=== PATIENT | female | born 1960 | race Two or more races ===

== ENCOUNTER 2018-04-18 17:16 | Emergency (ER) | payer MEDICAID ==
[2018-04-18 18:16] LABS: GLUCOSE, URINE (UA) NEGATIVE (NEGATIVE); KETONES,URINE (UA) TRACE mg/dL (NEGATIVE); LEUKOCYTE ESTERASE, URINE TRACE (NEGATIVE); NITRITE,URINE NEGATIVE (NEGATIVE); OCCULT BLOOD,URINE LARGE (NEGATIVE); PROTEIN,URINE TRACE mg/dL (NEGATIVE); UROBILINOGEN,URINE 1 (NORMAL) E.U./dL (NORMAL)
[2018-04-18 18:30] LABS: BILIRUBIN,URINE NEGATIVE (NEGATIVE); CLARITY,URINE HAZY (CLEAR); ICTOTEST,URINE NEGATIVE
--- NOTE | 2018-04-18 18:31 | ED Physician Documentation ---
PD HPI ABD PAIN - Stated complaint Stated Complaint: FEMALE - Chief complaint Chief Complaint: Abd Pain - History obtained from History obtained from: Patient - History of Present Illness Timing - onset: How many days ago (several days onset, but worse today) Timing - duration: Days (several) Timing - details: Gradual onset, Still present (much worse today) Quality: Cramping, Aching, Pain Location: Suprapubic Radiation: Lower back Associated symptoms: Nausea. No: Fever, Vomiting, Diarrhea, Constipation Similar symptoms before: Has not had sx before Recently seen: Not recently seen Review of Systems Constitutional: reports: Chills, Myalgias. denies: Fever Ears: denies: Ear pain Nose: denies: Rhinorrhea / runny nose, Congestion Throat: denies: Sore throat Cardiac: denies: Chest pain / pressure, Palpitations Respiratory: denies: Dyspnea, Cough GI: reports: Abdominal Pain, Nausea. 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 - Present Medications Home Medications: Ambulatory Orders Medication Instructions Recorded Confirmed Cephalexin [Keflex] 500 mg PO TID #21 capsule 04/18/18 Metronidazole [Flagyl] 500 mg PO BID #14 tablet 04/18/18 Naproxen 375 mg PO BID #20 tablet 04/18/18 Ondansetron HCl [Zofran] 4 mg PO Q6H PRN #20 tablet 04/18/18 Tramadol HCl 50 mg PO Q6H PRN #25 tablet 04/18/18 hydroCHLOROthiazide 25 mg 04/18/18 [Hydrochlorothiazide] - Allergies Allergies/Adverse Reactions: Allergies Allergy/AdvReac Type Severity Reaction Status Date / Time hydrocodone Allergy Mild Nausea Verified 04/18/18 17:27 morphine AdvReac Severe Anaphylaxis Verified 04/18/18 17:26 PD ED PE NORMAL - Vitals Vital signs reviewed: Yes - General General: Alert and oriented X 3, Well developed/nourished - HEENT HEENT: Pharynx benign - Neck Neck: Supple, no meningeal sign, No adenopathy - Cardiac Cardiac: RRR, No murmur - Respiratory Respiratory: Clear bilaterally - Abdomen Abdomen: Soft, No organomegaly, Other (tender lower abd midline and suprapubic area. Local guarding but no percussion nor rebound. ). No: Normal bowel sounds (somewhat hyperactive) - Female Female : Deferred - Rectal Rectal: Deferred - Back Back: No CVA TTP - Derm Derm: Normal color, Warm and dry - Extremities Extremities: No deformity, No tenderness to palpate, Normal ROM s pain, No edema , No calf tenderness / cord - Neuro Neuro: Alert and oriented X 3, No motor deficit, Normal speech Results - Vitals Vitals: Oxygen O2 Source Room air - Labs Labs: Laboratory Tests 04/18/18 17:38 Urine Color YELLOW Urine Clarity HAZY Urine pH 6.0 Ur Specific [place] >=1.030 H Urine Protein TRACE Urine Glucose (UA) NEGATIVE Urine Ketones TRACE Urine Occult Blood LARGE H Urine Nitrite NEGATIVE Urine Bilirubin NEGATIVE Urine Urobilinogen 1 (NORMAL) Ur Leukocyte Esterase TRACE H Urine RBC 6-10 H Urine WBC 6-10 H Ur Squamous Epith Cells MOD Squamous H Urine Bacteria Moderate H Urine Mucus Moderate Strands Ur Microscopic Review INDICATED Urine Culture Comments NOT INDICATED - Rads (name of study) abd CT Radiology: Prelim report reviewed (sigmoid diverticulitis without perforation nor abscess. ) PD MEDICAL DECISION MAKING - ED course Complexity details: reviewed results (sigmoid diverticulitis, uncomplicated. ), re-evaluated patient (feeling better with meds. ), considered differential, d/w patient - Sepsis Event Vital Signs: Oxygen O2 Source Room air Departure - Departure Disposition: 01 Home, Self Care Clinical Impression: Sigmoid diverticulitis Abdominal pain Qualifiers: Abdominal location: lower abdomen, unspecified Qualified Code(s): R10.30 - Lower abdominal pain, unspecified Condition: Stable Record reviewed to determine appropriate education?: Yes Instructions: ED Diverticulitis Prescriptions: Cephalexin [Keflex] 500 mg PO TID #21 capsule Metronidazole [Flagyl] 500 mg PO BID #14 tablet Naproxen 375 mg PO BID #20 tablet Ondansetron HCl [Zofran] 4 mg PO Q6H PRN #20 tablet PRN Reason: Nausea / Vomiting Tramadol HCl 50 mg PO Q6H PRN #25 tablet PRN Reason: Pain Comments: Your CT scan shows sigmoid diverticulitis. The sigmoid is in the low intestine so it feels like it is around the bladder area and that will give you the symptoms. We will treat this with antibiotics cephalexin and metronidazole as directed for a week. Use an anti-inflammatory naproxen twice daily for a week as well. Drink lots of fluids. Use ondansetron if needed for nausea. Tylenol if needed for pain and add tramadol to that if needed. Follow-up with your primary care if not improving well over the next couple of days. Return to the ER sooner if worse. Discharge Date/Time: 04/18/18 21:20
[2018-04-18 18:42] LABS: BACTERIA,URINE Moderate /HPF (None Seen); MUCUS,URINE Moderate Strands; SQUAMOUS EPITHELIAL CELL,UR MOD Squamous (<= Few)
[2018-04-18] MEDS ORDERED: traMADol 50 MG TABLET PO STA (18:46)
[2018-04-18] MEDS ORDERED: KETOROLAC 30 MG/ML VIAL IM STA (18:46)
[2018-04-18] MEDS ORDERED: cephALEXin 250 MG CAPSULE PO STA (18:46)
[2018-04-18] MEDS ORDERED: ACETAMINOPHEN 325 MG TABLET PO STA (18:47)
--- NOTE | 2018-04-18 20:37 | CT Report ---
Procedure Date: 04/18/2018 Accession Number: [id number] / [id number] Procedure: CT - KUB CPT Code: FULL RESULT: EXAM: CT ABDOMEN AND PELVIS (CT KUB) EXAM DATE: 04/18/2018 07:39 PM. CLINICAL HISTORY: Lower abdomen/flank pain today. COMPARISONS: None. TECHNIQUE: Routine axial helical CT imaging was performed through the abdomen and pelvis without IV contrast. Reconstructions: Coronal and sagittal. In accordance with CT protocol optimization, one or more of the following dose reduction techniques were utilized for this exam: automated exposure control, adjustment of mA and/or KV based on patient size, or use of iterative reconstructive technique. FINDINGS: Lung Bases: Mild atelectasis/scarring. Right Kidney/Ureter: No stones, hydronephrosis, or hydroureter. No perinephric fat stranding. Left Kidney/Ureter: No stones, hydronephrosis, or hydroureter. No perinephric fat stranding. Other Solid Organs: Multiple hepatic cysts, largest lateral right lobe 3.7 cm. Noncontrast images of the solid organs are otherwise grossly unremarkable. Gallbladder/Bile Ducts: Cholecystectomy. No dilated ducts. Peritoneal Cavity: No free fluid, free air or gabbi adenopathy. Moderate diverticulosis. Wall thickening and adjacent fat stranding, upper sigmoid colon, otherwise bowel is grossly unremarkable. Normal appendix noted. Pelvic Organs: Hysterectomy. Unremarkable bladder. Vasculature: Unremarkable. Other: Small fat-containing umbilical hernia. IMPRESSION: 1. No urinary tract stones or obstruction. 2. Uncomplicated upper sigmoid colon diverticulitis. 3. Multiple hepatic cysts noted. 4. Cholecystectomy and hysterectomy. RADIA
[2018-04-18 21:06] VITALS: BP 148/97
[2018-04-18] MEDS ORDERED: metroNIDAZOLE 250 MG TABLET PO STA (21:08)
== END 2018-04-18 21:20 | disposition home or self-care (01) ==
LOC: ED 17:16
DX: K57.32 Diverticulitis of large intestine without perforation or abscess without bleeding (principal); R10.30 Lower abdominal pain, unspecified
CPT/HCPCS: 74176; 81001; 96372; 99283; 99284; A9270; 81003; 87086

== ENCOUNTER 2018-04-25 07:00 | Outpatient (CLI) | payer MEDICAID ==
[2018-04-25 12:43] LABS: BASOPHILS % (AUTO) 0.6 %; EOSINOPHILS # (AUTO) 0.3 10^3/uL (0.0-0.7); EOSINOPHILS % (AUTO) 5.5 %; HGB - HEMOGLOBIN 14.6 g/dL (12.0-16.0); LYMPHOCYTES # (AUTO) 1.6 10^3/uL (1.5-3.5); LYMPHOCYTES % (AUTO) 26.5 %; MEAN CORPUSCULAR HEMOGLOBIN 31.1 pg (27.0-31.0); MEAN CORPUSCULAR HGB CONC 33.2 g/dL (32.0-36.0); MEAN CORPUSCULAR VOLUME 93.7 fL (81.0-99.0); MEAN PLATELET VOLUME 7.9 fL (7.9-10.8); MONOCYTES # (AUTO) 0.3 10^3/uL (0.0-1.0); MONOCYTES % (AUTO) 5.2 %; NEUTROPHILS # (AUTO) 3.8 10^3/uL (1.5-6.6); NEUTROPHILS % (AUTO) 62.2 %; PLT - PLATELET COUNT 391 10^3/uL (130-450); RED BLOOD COUNT 4.69 10^6/uL (4.20-5.40); RED CELL DISTRIBUTION WIDTH 14.1 % (12.0-15.0); WHITE BLOOD COUNT 6.2 x10^3/uL (4.8-10.8)
[2018-04-25 13:05] LABS: ALBUMIN 3.7 g/dL (3.2-5.5); ALBUMIN/GLOBULIN RATIO 0.9 (1.0-2.2); ALKALINE PHOSPHATASE 62 IU/L (42-121); ALT ALANINE AMINOTRANSFERASE 41 IU/L (10-60); AST ASPARTATE AMINOTRANSFERASE 50 IU/L (10-42); BILIRUBIN,TOTAL 0.8 mg/dL (0.2-1.0); BUN - BLOOD UREA NITROGEN 16 mg/dL (6-20); CALCIUM 9.4 mg/dL (8.5-10.3); CARBON DIOXIDE - CO2 31 mmol/L (21-32); CHLORIDE 102 mmol/L (101-111); CHOL/HDL RATIO 6.7 (<4.4); CHOLESTEROL 207 mg/dL; CREATININE 0.8 mg/dL (0.4-1.0); GFR - MDRD 74 (>89); GLUCOSE 97 mg/dL (70-100); HDL CHOLESTEROL 31 mg/dL; LDL CHOLESTEROL,CALCULATED 148 mg/dL; LDL/HDL RATIO 4.8 (<4.4); SODIUM 140 mmol/L (135-145); TOTAL PROTEIN 7.6 g/dL (6.7-8.2); VLDL CHOLESTEROL 28 mg/dL
[2018-04-25 13:12] LABS: THYROID STIMULATING HORMONE 3.59 uIU/mL (0.34-5.60)
[2018-04-25 13:21] LABS: FOLATE 19.02 ng/mL (5.90 - >24.8)
== END 2018-04-25 07:01 | disposition home or self-care (01) ==
LOC: LAB.N 07:00
PROVIDERS: ATTEND Nurse Practitioner
DX: R53.83 Other fatigue (principal); I10 Essential (primary) hypertension; E55.9 Vitamin D deficiency, unspecified
CPT/HCPCS: 36415; 80053; 80061; 82306; 82607; 82746; 83721; 84443; 85025

== ENCOUNTER 2018-08-07 10:02 | Outpatient (CLI) | payer MEDICAID ==
[2018-08-07 12:21] LABS: BASOPHILS % (AUTO) 0.7 %; EOSINOPHILS # (AUTO) 0.2 10^3/uL (0.0-0.7); EOSINOPHILS % (AUTO) 2.9 %; HGB - HEMOGLOBIN 14.2 g/dL (12.0-16.0); LYMPHOCYTES # (AUTO) 1.4 10^3/uL (1.5-3.5); LYMPHOCYTES % (AUTO) 25.6 %; MEAN CORPUSCULAR HEMOGLOBIN 30.6 pg (27.0-31.0); MEAN CORPUSCULAR HGB CONC 34.9 g/dL (32.0-36.0); MEAN CORPUSCULAR VOLUME 87.5 fL (81.0-99.0); MEAN PLATELET VOLUME 8.6 fL (7.9-10.8); MONOCYTES # (AUTO) 0.3 10^3/uL (0.0-1.0); MONOCYTES % (AUTO) 5.1 %; NEUTROPHILS # (AUTO) 3.7 10^3/uL (1.5-6.6); NEUTROPHILS % (AUTO) 65.7 %; PLT - PLATELET COUNT 297 10^3/uL (130-450); RED BLOOD COUNT 4.65 10^6/uL (4.20-5.40); RED CELL DISTRIBUTION WIDTH 13.4 % (12.0-15.0); WHITE BLOOD COUNT 5.7 x10^3/uL (4.8-10.8)
[2018-08-07 12:43] LABS: % IRON SATURATION 28 % (20-50); IRON 99 ug/dL (28-170); TOTAL IRON BINDING CAPACITY 351 ug/dL (250-450); TRANSFERRIN 251 mg/dL (192-382)
[2018-08-07 12:56] LABS: FERRITIN 16.7 ng/mL (11.0-306.8)
== END 2018-08-07 10:03 | disposition home or self-care (01) ==
LOC: LAB.N 10:02
PROVIDERS: ATTEND Nurse Practitioner
DX: E55.9 Vitamin D deficiency, unspecified (principal); E53.8 Deficiency of other specified B group vitamins
CPT/HCPCS: 36415; 82306; 82607; 82728; 83540; 84466; 85025

== ENCOUNTER 2018-08-26 11:15 | Emergency (ER) | payer MEDICAID ==
[2018-08-26 11:48] LABS: BILIRUBIN,URINE NEGATIVE (NEGATIVE); GLUCOSE, URINE (UA) NEGATIVE (NEGATIVE); KETONES,URINE (UA) NEGATIVE (NEGATIVE); NITRITE,URINE NEGATIVE (NEGATIVE); OCCULT BLOOD,URINE SMALL (NEGATIVE); PH,URINE 7.5 PH (5.0-7.5); PROTEIN,URINE NEGATIVE (NEGATIVE); UROBILINOGEN,URINE 2 E.U./dL (NORMAL)
[2018-08-26 12:00] LABS: CLARITY,URINE CLEAR (CLEAR); LEUKOCYTE ESTERASE, URINE NEGATIVE (NEGATIVE)
[2018-08-26 12:01] LABS: RBC,URINE 0-5 /HPF (0-5); SQUAMOUS EPITHELIAL CELL,UR MOD Squamous (<= Few)
[2018-08-26 12:02] LABS: BACTERIA,URINE Many /HPF (None Seen)
--- NOTE | 2018-08-26 13:07 | ED Physician Documentation ---
PD HPI ABD PAIN - Stated complaint Stated Complaint: AB PX/CONSTIPATION - Chief complaint Chief Complaint: Abd Pain - History obtained from History obtained from: Patient - History of Present Illness Timing - onset: How many days ago (4) Timing - duration: Days (4) Timing - details: Gradual onset, Waxing and waning Quality: Cramping, Aching. No: Fullness/distended Location: All over / everywhere, Periumbilical Radiation: No: Lower back, Left flank, Right flank Improved by: BM (had not had BM for 4 days and having cramping pains. Not consistent pain. Had BM here in ER after triage and states pain decreased from 8 to 3. No vomiting. No fever.) Worsened by: Moving, Palpation Associated symptoms: Nausea, Constipation. No: Fever, Vomiting, Diarrhea, Melena, Hematochezia Similar symptoms before: Diagnosis (has had crmping with constipation in the past but this was more consistent and longer.) Recently seen: Not recently seen Review of Systems Constitutional: denies: Fever, Chills, Myalgias Nose: denies: Rhinorrhea / runny nose, Congestion Throat: denies: Sore throat Respiratory: denies: Cough GI: reports: Abdominal Pain, Nausea, Constipation. 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 - Present Medications Home Medications: Ambulatory Orders Medication Instructions Recorded Confirmed Cephalexin [Keflex] 500 mg PO TID #21 capsule 04/18/18 Metronidazole [Flagyl] 500 mg PO BID #14 tablet 04/18/18 Naproxen 375 mg PO BID #20 tablet 04/18/18 Ondansetron HCl [Zofran] 4 mg PO Q6H PRN #20 tablet 04/18/18 Tramadol HCl 50 mg PO Q6H PRN #25 tablet 04/18/18 hydroCHLOROthiazide 25 mg 04/18/18 [Hydrochlorothiazide] Naproxen 375 mg PO BID #20 tablet 08/26/18 Polyethylene Glycol 3350 [Miralax] 17 gm PO DAILY PRN #1 bottle 08/26/18 - Allergies Allergies/Adverse Reactions: Allergies Allergy/AdvReac Type Severity Reaction Status Date / Time hydrocodone Allergy Mild Nausea Verified 08/26/18 11:31 morphine AdvReac Severe Anaphylaxis Verified 08/26/18 11:31 - Social History Does the pt smoke?: No Smoking Status: Never smoker Does the pt drink ETOH?: No Does the pt have substance abuse?: No - POLST Patient has POLST: No PD ED PE NORMAL - Vitals Vital signs reviewed: Yes - General General: Alert and oriented X 3, No acute distress, Well developed/nourished - HEENT HEENT: Moist mucous membranes, Pharynx benign - Neck Neck: Supple, no meningeal sign, No adenopathy - Cardiac Cardiac: RRR, No murmur - Respiratory Respiratory: Clear bilaterally - Abdomen Abdomen: Normal bowel sounds, Soft, Non tender, Non distended, No organomegaly - Female Female : Deferred - Rectal Rectal: Deferred - Back Back: No CVA TTP - Derm Derm: Normal color - Extremities Extremities: No deformity, No tenderness to palpate, No edema, No calf tenderness / cord - Neuro Neuro: Alert and oriented X 3, No motor deficit, Normal speech Results - Vitals Vitals: Vital Signs - 24 hr 08/26/18 08/26/18 11:29 13:57 Temperature 36.3 C L Heart Rate 85 78 Respiratory 16 12 Rate Blood Pressure 141/91 H 126/89 H O2 Saturation 97 98 Oxygen O2 Source Room air - Labs Labs: Laboratory Tests 08/26/18 11:37 Urine Color YELLOW Urine Clarity CLEAR Urine pH 7.5 Ur Specific [place] 1.015 Urine Protein NEGATIVE Urine Glucose (UA) NEGATIVE Urine Ketones NEGATIVE Urine Occult Blood SMALL H Urine Nitrite NEGATIVE Urine Bilirubin NEGATIVE Urine Urobilinogen 2 H Ur Leukocyte Esterase NEGATIVE Urine RBC 0-5 Urine WBC 0-3 Ur Squamous Epith Cells MOD Squamous H Urine Bacteria Many H Ur Microscopic Review INDICATED Urine Culture Comments NOT INDICATED PD MEDICAL DECISION MAKING - ED course Complexity details: considered differential (improved pain with BM here. Exam without tenderness here. No fevers. I think exam is benign enough to that it does not seem like diverticulitis or such. Not tender RLQ. Talked with patient and opted for not doing tests and treat with stool softener and anti- inflammatories. ), d/w patient Departure - Departure Disposition: 01 Home, Self Care Clinical Impression: Constipation Qualifiers: Constipation type: unspecified constipation type Qualified Code(s): K59.00 - Constipation, unspecified Abdominal pain Qualifiers: Abdominal location: lower abdomen, unspecified Qualified Code(s): R10.30 - Lower abdominal pain, unspecified Condition: Stable Record reviewed to determine appropriate education?: Yes Instructions: ED Abdominal Pain Unkn Cause, ED Constipation Follow-Up: Gracie Hurtado DNP [Primary Care Provider] - Prescriptions: Naproxen 375 mg PO BID #20 tablet Polyethylene Glycol 3350 [Miralax] 17 gm PO DAILY PRN #1 bottle PRN Reason: Constipation Comments: Drink lots of fluids. You can use the MiraLAX every couple of hours through the day today until you are having loose stools and then stop any further. Then start taking it just once daily over the next week or 2 to maintain stool softener. Use naproxen twice daily for the next week for possible inflammation of the intestine. Recheck if not improved over the next few days or if you have increasing pain, fever, fevers, bloody stool or other concerns. Discharge Date/Time: 08/26/18 14:02
[2018-08-26] MEDS ORDERED: NAPROXEN 250 MG TABLET PO STA (13:26)
[2018-08-26 13:58] VITALS: BP 126/89
== END 2018-08-26 14:02 | disposition home or self-care (01) ==
LOC: ED 11:15
DX: K59.00 Constipation, unspecified (principal); R10.30 Lower abdominal pain, unspecified
CPT/HCPCS: 81001; 81003; 87086; 99283

== ENCOUNTER 2018-09-11 08:00 | Outpatient (CLI) | payer MEDICAID | END 2018-09-11 08:01 | LOC: LAB.N 08:00 | PROVIDERS: ATTEND Nurse Practitioner | DX: R61 Generalized hyperhidrosis (principal) | CPT/HCPCS: 36415; 84443 ==

== ENCOUNTER 2018-10-31 09:34 | Outpatient (CLI) | payer MEDICAID | END 2018-10-31 23:59 | disposition home or self-care (01) | LOC: RT.N 09:34 | PROVIDERS: ATTEND Nurse Practitioner | DX: Z53.9 Procedure and treatment not carried out, unspecified reason (principal) ==

== ENCOUNTER 2019-01-21 10:43 | Outpatient (CLI) | payer MEDICAID | END 2019-01-21 10:44 | disposition home or self-care (01) | LOC: SC 10:43 | PROVIDERS: ATTEND Internal Medicine Pulmonary Disease | DX: G47.10 Hypersomnia, unspecified (principal); R06.81 Apnea, not elsewhere classified; R41.89 Other symptoms and signs involving cognitive functions and awareness; G47.8 Other sleep disorders; R51 Headache; R06.83 Snoring; E66.9 Obesity, unspecified; Z68.35 Body mass index [BMI] 35.0-35.9, adult | CPT/HCPCS: 99203; 99212 ==

== ENCOUNTER 2019-02-09 20:29 | Outpatient (CLI) | payer MEDICAID | END 2019-02-09 20:30 | disposition home or self-care (01) | LOC: SC 20:29 | PROVIDERS: ATTEND Internal Medicine Pulmonary Disease | DX: G47.33 Obstructive sleep apnea (adult) (pediatric) (principal) | CPT/HCPCS: 95811 ==

== ENCOUNTER 2019-02-19 08:46 | Outpatient (CLI) | payer MEDICAID | END 2019-02-19 08:47 | disposition home or self-care (01) | LOC: SC 08:46 | PROVIDERS: ATTEND Internal Medicine Pulmonary Disease | DX: G47.33 Obstructive sleep apnea (adult) (pediatric) (principal) | CPT/HCPCS: 99212; 99213 ==

== ENCOUNTER 2019-03-29 08:00 | Outpatient (CLI) | payer MEDICAID ==
[2019-03-29 14:08] LABS: BASOPHILS % (AUTO) 0.7 %; EOSINOPHILS # (AUTO) 0.2 10^3/uL (0.0-0.7); EOSINOPHILS % (AUTO) 3.4 %; HGB - HEMOGLOBIN 13.9 g/dL (12.0-16.0); LYMPHOCYTES # (AUTO) 1.3 10^3/uL (1.5-3.5); LYMPHOCYTES % (AUTO) 26.6 %; MEAN CORPUSCULAR HEMOGLOBIN 29.4 pg (27.0-31.0); MEAN CORPUSCULAR HGB CONC 33.3 g/dL (32.0-36.0); MEAN CORPUSCULAR VOLUME 88.3 fL (81.0-99.0); MONOCYTES # (AUTO) 0.3 10^3/uL (0.0-1.0); MONOCYTES % (AUTO) 6.3 %; NEUTROPHILS # (AUTO) 3.1 10^3/uL (1.5-6.6); PLT - PLATELET COUNT 285 10^3/uL (130-450); RED BLOOD COUNT 4.74 10^6/uL (4.20-5.40)
[2019-03-29 14:31] LABS: THYROID STIMULATING HORMONE 3.79 uIU/mL (0.34-5.60)
[2019-03-29 14:38] LABS: ALBUMIN 3.8 g/dL (3.2-5.5); ALBUMIN/GLOBULIN RATIO 1.1 (1.0-2.2); ALKALINE PHOSPHATASE 47 IU/L (42-121); ALT ALANINE AMINOTRANSFERASE 17 IU/L (10-60); AST ASPARTATE AMINOTRANSFERASE 19 IU/L (10-42); BILIRUBIN,TOTAL 0.8 mg/dL (0.2-1.0); BUN - BLOOD UREA NITROGEN 15 mg/dL (6-20); CALCIUM 9.1 mg/dL (8.5-10.3); CARBON DIOXIDE - CO2 27 mmol/L (21-32); CHLORIDE 106 mmol/L (101-111); CHOL/HDL RATIO 5.7 (<4.4); CHOLESTEROL 204 mg/dL; CREATININE 0.6 mg/dL (0.4-1.0); GFR - MDRD 103 (>89); GLUCOSE 100 mg/dL (70-100); HDL CHOLESTEROL 36 mg/dL; LDL CHOLESTEROL,CALCULATED 146 mg/dL; LDL/HDL RATIO 4.1 (<4.4); SODIUM 140 mmol/L (135-145); TOTAL PROTEIN 7.3 g/dL (6.7-8.2); VLDL CHOLESTEROL 22 mg/dL
[2019-03-29 14:40] LABS: FOLATE 10.78 ng/mL (5.90 - >24.8)
== END 2019-03-29 23:59 | disposition home or self-care (01) ==
LOC: LAB.N 08:00
PROVIDERS: ATTEND Family Medicine
DX: I10 Essential (primary) hypertension (principal); E53.8 Deficiency of other specified B group vitamins; F43.10 Post-traumatic stress disorder, unspecified; F33.0 Major depressive disorder, recurrent, mild
CPT/HCPCS: 36415; 80053; 80061; 82607; 82746; 83721; 84443; 85025

== ENCOUNTER 2019-07-23 08:26 | Outpatient (CLI) | payer MEDICAID ==
--- NOTE | 2019-07-24 15:24 | CT Report ---
Reason: RT FLANK PAIN, HEMATURIA Procedure Date: 07/23/2019 Accession Number: [id number] / [id number] Procedure: CT - Abdomen/Pelvis WO CPT Code: FULL RESULT: EXAM: CT ABDOMEN AND PELVIS (CT KUB) EXAM DATE: 07/23/2019 08:45 AM. CLINICAL HISTORY: Right flank pain. Hematuria. COMPARISONS: KUB 04/18/2018 7:33 PM. TECHNIQUE: Routine axial helical CT imaging was performed through the abdomen and pelvis without IV contrast. Reconstructions: Coronal and sagittal. In accordance with CT protocol optimization, one or more of the following dose reduction techniques were utilized for this exam: automated exposure control, adjustment of mA and/or KV based on patient size, or use of iterative reconstructive technique. FINDINGS: Lung Bases: Stable 10 mm nodular-like opacity in the medial right costophrenic sulcus (image 19/3). Right Kidney/Ureter: No stones, hydronephrosis, or hydroureter. No perinephric fat stranding. Left Kidney/Ureter: 1 mm nonobstructing stone in the mid left kidney is seen. No hydronephrosis or hydroureter. No perinephric fat stranding. Other Solid Organs: Noncontrast imaging of the remainder solid organs is notable for multiple scattered hepatic cysts again. No organomegaly. Gallbladder/Bile Ducts: Cholecystectomy changes are seen. There is no biliary dilation. Peritoneal Cavity: There is mild predominantly left hemicolon diverticulosis without evidence of diverticulitis. There is no obstruction or ileus. No free fluid or free air. The appendix is normal. Pelvic Organs: No bladder stones or wall thickening. Noncontrast images of the visualized pelvic organs are unremarkable. Vasculature: Unremarkable. Other: None. IMPRESSION: 1. No nephrolithiasis or hydronephrosis demonstrated on the right side. Appendix is normal. 2. Minimal left-sided nephrolithiasis without hydronephrosis. 3. Mild colonic diverticulosis without diverticulitis. 4. Stable 1 cm nodular-like change along the medial right lower lobe, suspect focal scarring. A follow-up CT of the chest in one year could be considered to ensure long-term stability. RADIA
== END 2019-07-23 08:27 | disposition home or self-care (01) ==
LOC: DI 08:26
PROVIDERS: ATTEND Nurse Practitioner Gerontology
DX: N20.0 Calculus of kidney (principal); K57.30 Diverticulosis of large intestine without perforation or abscess without bleeding; R91.8 Other nonspecific abnormal finding of lung field
CPT/HCPCS: 74176

== ENCOUNTER 2019-08-06 09:11 | Outpatient (CLI) | payer MEDICAID ==
--- NOTE | 2019-08-06 09:52 | SLEEP CARE CONSULTATION ---
Information from patient questionnaire entered by Raquel Alvarado. I have reviewed and concur with the information entered by Raquel Alvarado. This document represents the service I personally performed and the decisions made by me, Sal Borjas MD, [facility]. History of Present Illness Previous diagnosis: Severe, Obstructive Sleep Apnea-Hypopnea Syndrome AHI: 73.5 Reason for CPAP/BiPAP follow up: other (5 months) Equipment type: CPAP Equipment obtained from: [employer] Mask brand: Respironics Prior sleep studies: Yes Year and Where: 2018 [facility] HPI additional information: HPI: Ms. Chawla returned today for follow up of nasal CPAP therapy. She was diagnosed to have very severe obstructive sleep apnea-hypopnea syndrome. [employer] is her durable medical supplier. The patient wears with a Respironics DreamWear nasal cushion mask size medium (supposed to be small). She reports using the device nightly and all through the night. She complained of no particular problem with the device such as soreness on the face, dry nose, epistaxis, nasal congestion or headache. She thinks that the pressure of 10 14 cmH2O is comfortable. On the CPAP therapy she notices improvement in her sleep quality, and that she wakes up feeling fresher in the morning and more awake/alert during the day. The [place] Sleepiness Scale score 10. Her daughter notices no snore at all. Her morning headache is gone. The average residual AHI is 2.6; and average time in large leak per day is 14 minutes. The 90th percentile pressure is 11.4 cmH2O. CPAP Compliance Data - Data Reviewed with Patient Average duration of nightly device use: 5h 25m Compliance rate %: 74.4 Current pressure setting (cmH2O): 10-14 Humidity settin Heated hose settin Subjective Patient concerns: reports: dry mouth, nose, throat, other (headache) Current pressure setting perceived as: comfortable Initial [place] Sleepiness Scale score: 22 Current [place] Sleepiness Scale score: 10 Allergies and Home Medications Drug allergies reviewed: Yes Home medication list reviewed: Yes Allergy and home medication list: MEDS: ydrochlorothiazide, losartan, vitamin B12, and an antidepressant Allergies: Morphine Review of Systems Review of systems same as previous: Yes Physical Exam Weight: 192 lb Impression and Plan IMPRESSION: 1. Obstructive Sleep Apnea-Hypopnea Syndrome, very severe, with the patient doing well on nasal CPAP therapy. She has excellent compliance and tremendous clinical improvement. The current pressure appears effective and comfortable. Overall, she is very satisfied with treatment and plans to continue with it long-term. No adjustment is necessary today. PLAN: 1. Continue with autoCPAP set at 10 - 14 cmH2O. 2. Prescription made for Respironics DreamWear nasal cushion mask size small. 3. Try to lose weight. 4. Return in one year for follow up or earlier if there is any problem with the treatment. 5. Switch durable medical supplier when her machine is fully paid for because she is unhappy with [facility]. I spent 100% of this 20 minute visit face to face with the patient with greater than 50% of this was spent time counseling the patient and coordination of care.
== END 2019-08-06 09:12 | disposition home or self-care (01) ==
LOC: SC 09:11
PROVIDERS: ATTEND Internal Medicine Pulmonary Disease
DX: G47.33 Obstructive sleep apnea (adult) (pediatric) (principal)
CPT/HCPCS: 99212; 99213

== ENCOUNTER 2019-09-04 15:10 | Outpatient (CLI) | payer MEDICAID ==
--- NOTE | 2019-09-05 12:22 | XRAY Report ---
Reason: PAIN IN SHOULDER Procedure Date: 09/04/2019 Accession Number: [id number] / [id number] Procedure: XRN - Shoulder 2 View RT CPT Code: Final Report FULL RESULT: EXAM: RIGHT SHOULDER RADIOGRAPHY EXAM DATE: 09/04/2019 03:33 PM. CLINICAL HISTORY: PAIN IN SHOULDER. Ground-level fall. COMPARISON: None. TECHNIQUE: 3 views. FINDINGS: Bones: Normal. No fracture or bone lesion. Joints: The glenohumeral and acromioclavicular joints are normal. Soft tissues: The visualized hemithorax is unremarkable. No soft tissue swelling. IMPRESSION: Normal at shoulder radiography. RADIA
--- NOTE | 2019-09-05 12:43 | XRAY Report ---
Reason: PAIN IN SHOULDER Procedure Date: 09/04/2019 Accession Number: [id number] / [id number] Procedure: XRN - Hand 2 View RT CPT Code: Final Report FULL RESULT: EXAM: RIGHT HAND RADIOGRAPHY EXAM DATE: 09/04/2019 03:34 PM. CLINICAL HISTORY: Right hand pain. Ground-level fall. COMPARISON: SHOULDER 2 VIEW RT 09/04/2019 3:31 PM. TECHNIQUE: 3 views. FINDINGS: Bones: Normal. No fractures or bone lesions. Joints: Normal. No subluxations. Soft Tissues: Normal. No soft tissue swelling. IMPRESSION: Normal right hand radiography. RADIA
== END 2019-09-04 15:11 | disposition home or self-care (01) ==
LOC: DI.N 15:10
PROVIDERS: ATTEND Physician Assistant Medical
DX: M25.511 Pain in right shoulder (principal); M79.641 Pain in right hand

== ENCOUNTER → 2019-11-25 | Outpatient (CLI) | payer MEDICAID ==
[2019-11-25 13:49] LABS: GLUCOSE, URINE (UA) NEGATIVE (NEGATIVE); KETONES,URINE (UA) TRACE mg/dL (NEGATIVE); LEUKOCYTE ESTERASE, URINE TRACE (NEGATIVE); NITRITE,URINE NEGATIVE (NEGATIVE); OCCULT BLOOD,URINE SMALL (NEGATIVE); PROTEIN,URINE TRACE mg/dL (NEGATIVE); UROBILINOGEN,URINE 4 E.U./dL (NORMAL)
[2019-11-25 14:07] LABS: AMORPHOUS SEDIMENT,UR Moderate /LPF; BACTERIA,URINE Few /HPF (None Seen); BILIRUBIN,URINE NEGATIVE (NEGATIVE); CLARITY,URINE CLOUDY (CLEAR); ICTOTEST,URINE NEGATIVE; MUCUS,URINE Few Strands; RBC,URINE 0-5 /HPF (0-5); SQUAMOUS EPITHELIAL CELL,UR FEW Squamous (<= Few)
== END ==
LOC: LAB.R 08:00
PROVIDERS: ATTEND Physician Assistant Medical
DX: R31.9 Hematuria, unspecified (principal); R10.9 Unspecified abdominal pain
CPT/HCPCS: 81001; 81003; 87077; 87086; 87181

== ENCOUNTER 2019-12-02 09:53 | Outpatient (CLI) | payer MEDICAID ==
--- NOTE | 2019-12-02 10:46 | CT Report ---
Reason: FLANK PAIN, HEMATURIA Procedure Date: 12/02/2019 Accession Number: [id number] / [id number] Procedure: CT - Abdomen/Pelvis WO CPT Code: Final Report FULL RESULT: EXAM: CT ABDOMEN AND PELVIS (CT KUB) EXAM DATE: 12/02/2019 10:09 AM. CLINICAL HISTORY: FLANK PAIN, HEMATURIA. COMPARISONS: ABDOMEN/PELVIS W/O 07/23/2019 8:45 AM. TECHNIQUE: Routine axial helical CT imaging was performed through the abdomen and pelvis without IV contrast. Reconstructions: Coronal and sagittal. In accordance with CT protocol optimization, one or more of the following dose reduction techniques were utilized for this exam: automated exposure control, adjustment of mA and/or KV based on patient size, or use of iterative reconstructive technique. FINDINGS: Lung Bases: Linear scarring/atelectasis lingula. Stable nodular opacity measuring approximately 10 mm medial costophrenic sulcus (). Right Kidney/Ureter: No stones, hydronephrosis, or hydroureter. No perinephric fat stranding. Left Kidney/Ureter: No hydronephrosis or hydroureter. Stable small left upper pole nonobstructing calculus measuring approximately 2-3 mm. Other Solid Organs: Scattered discrete hepatic hypodensities, possibly cysts, as before. Gallbladder/Bile Ducts: Cholecystectomy. Stable mild prominence of the common bile duct. Peritoneal Cavity: Scattered primarily descending, sigmoid colonic diverticula. No mass or acute inflammatory process. No obstruction. Appendix is normal. No pathologic lymphadenopathy. Pelvic Organs: Minimally distended urinary bladder without convincing calculus. Uterus absent. Ovaries are not visualized and may be absent. Vasculature: Unremarkable. Other: None. IMPRESSION: 1. No convincing acute abdominopelvic findings. 2. No hydronephrosis or convincing ureteral calculi. Stable small nonobstructing left renal calculus. 3. Colonic diverticulosis without focal evidence of acute diverticulitis. 4. Stable 10 mm nodular opacity along the medial right lower lobe, may reflect focal scarring, as before. Follow-up with chest CT per previous recommendations. 5. Other findings as noted above. RADIA
== END 2019-12-02 09:54 | disposition home or self-care (01) ==
LOC: DI 09:53
PROVIDERS: ATTEND Physician Assistant Medical
DX: N20.0 Calculus of kidney (principal); K57.30 Diverticulosis of large intestine without perforation or abscess without bleeding; R91.8 Other nonspecific abnormal finding of lung field
CPT/HCPCS: 74176

== ENCOUNTER 2020-01-30 10:19 | Outpatient (CLI) | payer MEDICAID ==
[2020-01-30 10:32] LABS: BASOPHILS % (AUTO) 0.6 %; EOSINOPHILS # (AUTO) 0.1 10^3/uL (0.0-0.7); EOSINOPHILS % (AUTO) 2.2 %; HGB - HEMOGLOBIN 14.4 g/dL (12.0-16.0); LYMPHOCYTES # (AUTO) 1.5 10^3/uL (1.5-3.5); LYMPHOCYTES % (AUTO) 27.3 %; MEAN CORPUSCULAR HEMOGLOBIN 29.9 pg (27.0-31.0); MEAN CORPUSCULAR HGB CONC 34.1 g/dL (32.0-36.0); MEAN CORPUSCULAR VOLUME 87.7 fL (81.0-99.0); MEAN PLATELET VOLUME 9.4 fL (7.9-10.8); MONOCYTES # (AUTO) 0.4 10^3/uL (0.0-1.0); MONOCYTES % (AUTO) 7.6 %; NEUTROPHILS # (AUTO) 3.3 10^3/uL (1.5-6.6); NEUTROPHILS % (AUTO) 61.9 %; PLT - PLATELET COUNT 316 10^3/uL (130-450); RED BLOOD COUNT 4.81 10^6/uL (4.20-5.40); RED CELL DISTRIBUTION WIDTH 12.7 % (12.0-15.0); WHITE BLOOD COUNT 5.4 x10^3/uL (4.8-10.8)
[2020-01-30 11:00] LABS: CALCIUM 8.6 mg/dL (8.5-10.3); CREATININE 0.7 mg/dL (0.4-1.0)
[2020-01-30 12:03] LABS: FREE T4 (FREE THYROXINE) 0.78 ng/dL (0.58-1.64)
[2020-01-30 13:09] LABS: HB2 TOTAL 14.6 g/dL; HEMOGLOBIN A1C 0.53 g/dL; HEMOGLOBIN A1C % 5.5 % (4.6-6.2)
== END 2020-01-30 10:20 | disposition home or self-care (01) ==
LOC: LAB 10:19
PROVIDERS: ATTEND Physician Assistant Medical
DX: R60.0 Localized edema (principal)
CPT/HCPCS: 36415; 80048; 83036; 83880; 84439; 84443; 85025

== ENCOUNTER 2020-03-03 09:22 | Outpatient (CLI) | payer MEDICAID ==
[2020-03-03 13:45] LABS: BASOPHILS % (AUTO) 0.5 %; EOSINOPHILS # (AUTO) 0.1 10^3/uL (0.0-0.7); EOSINOPHILS % (AUTO) 1.6 %; HGB - HEMOGLOBIN 13.9 g/dL (12.0-16.0); LYMPHOCYTES # (AUTO) 1.4 10^3/uL (1.5-3.5); LYMPHOCYTES % (AUTO) 21.7 %; MEAN CORPUSCULAR HEMOGLOBIN 30.1 pg (27.0-31.0); MEAN CORPUSCULAR HGB CONC 33.5 g/dL (32.0-36.0); MEAN CORPUSCULAR VOLUME 89.8 fL (81.0-99.0); MEAN PLATELET VOLUME 10.2 fL (7.9-10.8); MONOCYTES # (AUTO) 0.4 10^3/uL (0.0-1.0); MONOCYTES % (AUTO) 6.8 %; NEUTROPHILS # (AUTO) 4.3 10^3/uL (1.5-6.6); NEUTROPHILS % (AUTO) 69.1 %; PLT - PLATELET COUNT 329 10^3/uL (130-450); RED BLOOD COUNT 4.62 10^6/uL (4.20-5.40); RED CELL DISTRIBUTION WIDTH 12.9 % (12.0-15.0); WHITE BLOOD COUNT 6.2 x10^3/uL (4.8-10.8)
[2020-03-03 14:18] LABS: FREE T4 (FREE THYROXINE) 0.79 ng/dL (0.58-1.64)
== END 2020-03-03 23:59 | disposition home or self-care (01) ==
LOC: LAB.WCP 09:22
PROVIDERS: ATTEND Physician Assistant Medical
DX: R94.6 Abnormal results of thyroid function studies (principal); E87.6 Hypokalemia
CPT/HCPCS: 36415; 84439; 84443; 85025

== ENCOUNTER 2020-03-10 12:42 | Outpatient (CLI) | payer MEDICAID ==
--- NOTE | 2020-03-11 11:27 | XRAY Report ---
Reason: LOW BACK PAIN NO INJURY Procedure Date: 03/10/2020 Accession Number: [id number] / [id number] Procedure: XR - Lumbar Spine 2 View CPT Code: Final Report FULL RESULT: EXAM: LUMBOSACRAL SPINE RADIOGRAPHY EXAM DATE: 03/10/2020 01:00 PM. CLINICAL HISTORY: LOW BACK PAIN NO INJURY. COMPARISONS: ABDOMEN/PELVIS W/O 12/02/2019 10:10 AM. TECHNIQUE: 2 views. FINDINGS: Alignment: No spondylolisthesis or scoliosis. Bones: Five [id number] lumbar vertebral bodies are present. No fractures or bone lesions. Potential diffuse osteopenia. Disks: Normal. Disk heights are maintained. Facets: No degenerative changes. Sacroiliac Joints: Unremarkable. Soft Tissues: Gallbladder fossa surgical clips. IMPRESSION: 1. No fracture or significant degenerative changes. 2. Potential osteopenia. Consider DEXA exam. RADIA
== END 2020-03-10 12:43 | disposition home or self-care (01) ==
LOC: DI 12:42
PROVIDERS: ATTEND Registered Nurse
DX: M54.5 Low back pain (principal)
CPT/HCPCS: 72100

== ENCOUNTER 2020-04-20 07:58 | Outpatient (CLI) | payer MEDICAID ==
--- NOTE | 2020-04-20 10:25 | DEXA Report ---
Reason: OSTEOPENIA Procedure Date: 04/20/2020 Accession Number: [id number] / [id number] Procedure: DEX - Dexa Spine and/or Hip CPT Code: Final Report FULL RESULT: PROCEDURE: Dexa Spine and/or Hip INDICATIONS: OSTEOPENIA TECHNIQUE: Dual energy x-ray absorptiometry (DXA) was performed on a [email or web address] System. Regions measured are the AP Spine, femoral neck, and if needed forearm. COMPARISON: None. FINDINGS: Lumbar Spine: Bone Mineral Density 0.961 g/cm/cm,T score -1.8, osteopenia Hip: Bone Mineral Density 0.925 g/cm/cm,T score -0.7, normal Femoral Neck: Bone Mineral Density 0.814 g/cm/cm, T score -1.6, osteopenia (T score greater or equal to -1.0: NORMAL) (T score from -1.1 to -2.4: OSTEOPENIA) (T score less than or equal to -2.5 to: OSTEOPOROSIS) Impression: Findings consistent with osteopenia. Patients with diagnosis of osteoporosis or osteopenia should have regular bone mineral density assessment. For those eligible for Medicare, routine testing is allowed once every 2 years. Testing frequency can be increased for patients who have rapidly progressing disease or for those who are receiving medical therapy to restore bone mass. Reviewed by: Ivy Bose MD, PhD on 04/20/2020 10:24 AM PDT Approved by: Ivy Bose MD, PhD on 04/20/2020 10:24 AM PDT Station ID: [id number]
== END 2020-04-20 07:59 | disposition home or self-care (01) ==
LOC: DI 07:58
PROVIDERS: ATTEND Registered Nurse
DX: M85.89 Other specified disorders of bone density and structure, multiple sites (principal)
CPT/HCPCS: 77080

== ENCOUNTER 2020-06-26 08:33 | Outpatient (CLI) | payer MEDICARE, MEDICAID ==
--- NOTE | 2020-06-29 12:08 | Mammography Report ---
BILATERAL DIGITAL SCREENING MAMMOGRAM 3D/2D: 06/26/2020 CLINICAL: Baseline exam. No prior exams were available for comparison. The tissue of both breasts is heterogeneously dense. T his may lower the sensitivity of mammography. There are multiple oval low density masses with obscured and circumscribed margins in the right breas t with the largest measuring up to 1.2 cm at 6 o'clock anterior depth. There are multiple oval low density masses with obscured and circumscribed margins in the left breast with the largest measuring up to 1.2 cm superior medial quadrant middle depth. No other significant masses or calcifications are seen in either breast. IMPRESSION: INCOMPLETE: NEEDS ADDITIONAL IMAGING EVALUATION The 1.2 cm oval low density mass in the right breast at 6 o'clock anterior depth is suggestive of a c yst but is indeterminate. An ultrasound is recommended. The multiple 1.2 cm oval low density mass in the left breast superior medial quadrant middle depth is suggestive of a cyst but is indeterminate. An ultrasound is recommended. This exam was interpreted at Station ID: [id number]. NOTE: For mammograms, a report in lay terms will be sent to the patient. Approximately 15% of breast malignancies will not be visualized mammographically. In the management of a palpable breast mass, a negative mammogram must not discourage biopsy of a clinically suspicious lesion. Electronically Signed By: Julius Roberts M.D. ddp/:06/26/2020 11:38:47 ACR BI-RADS Category 0: Incomplete 3340F PARENCHYMAL PATTERN: (D) - The breast(s) demonstrate(s) heterogeneously dense fibroglandular parlouisy ma. BI-RADS CATEGORY: (0) - 0 Ultrasound [id number] Immediate follow-up LATERALITY: (B)
== END 2020-06-26 08:34 | disposition home or self-care (01) ==
LOC: DI.N 08:33
DX: Z12.31 Encounter for screening mammogram for malignant neoplasm of breast (principal); R92.8 Other abnormal and inconclusive findings on diagnostic imaging of breast
CPT/HCPCS: 77063; 77067

== ENCOUNTER 2020-07-17 13:51 | Outpatient (CLI) | payer MEDICARE, MEDICAID ==
--- NOTE | 2020-07-20 10:27 | Ultrasound Report ---
LIMITED ULTRASOUND OF RIGHT BREAST: 07/17/2020 CLINICAL: Additional evaluation requested from prior study. No prior exams were available for comparison. Color flow and real-time ultrasound of the right breast 6 o'clock region were performed. Castillo scale images of the real-time examination were reviewed. There is a benign 0.4 cm simple cyst in the right breast at 6 o'clock posterior depth 7 cm from the n ipple. IMPRESSION: BENIGN There is no sonographic evidence of malignancy. The 0.4 cm simple cyst in the right breast is benign. Return to annual mammogram screening schedule is recommended. This exam was interpreted at Station ID: [id number]. Electronically Signed By: Chucho Vigil M.D., jr/deborah:07/17/2020 16:59:38 Ultrasound BI-RADS: 2 Benign BI-RADS CATEGORY: (2) - 2 Mammogram [id number] return to screening LATERALITY: (B)
--- NOTE | 2020-07-20 10:28 | Ultrasound Report ---
LIMITED ULTRASOUND OF LEFT BREAST AND AXILLA: 07/17/2020 CLINICAL: Additional evaluation requested from prior study. No prior exams were available for comparison. Color flow and real-time ultrasound of the left breast axilla were performed. Castillo scale images of the real-time examination were reviewed. There is a benign 1.1 cm simple cyst in the left breast at 6 o'clock middle depth 8 cm from the nippl e. IMPRESSION: BENIGN There is no sonographic evidence of malignancy. The 1.1 cm simple cyst in the left breast is benign. Return to annual screening schedule is recommended. This exam was interpreted at Station ID: [id number]. Electronically Signed By: Chucho Vigil M.D., jr/deborah:07/17/2020 16:57:54 Ultrasound BI-RADS: 2 Benign BI-RADS CATEGORY: (2) - 2 Unspecified - other [id number] return to screening LATERALITY: (B)
== END 2020-07-17 13:52 | disposition home or self-care (01) ==
LOC: DI 13:51
PROVIDERS: ATTEND Physician Assistant
DX: N60.02 Solitary cyst of left breast (principal); N60.01 Solitary cyst of right breast
CPT/HCPCS: 76642

== ENCOUNTER 2020-08-24 18:31 | Outpatient (CLI) | payer MEDICARE, MEDICAID | END 2020-08-24 18:32 | disposition home or self-care (01) | LOC: COV 18:31 | PROVIDERS: ATTEND Family Medicine | DX: R05 Cough (principal); R68.83 Chills (without fever); J02.9 Acute pharyngitis, unspecified; Z20.828 Contact with and (suspected) exposure to other viral communicable diseases ==

== ENCOUNTER 2020-08-27 08:00 | Outpatient (CLI) | payer MEDICARE, MEDICAID ==
[2020-08-27 18:03] LABS: BASOPHILS % (AUTO) 0.7 %; EOSINOPHILS # (AUTO) 0.1 10^3/uL (0.0-0.7); EOSINOPHILS % (AUTO) 2.1 %; HGB - HEMOGLOBIN 14.1 g/dL (12.0-16.0); LYMPHOCYTES # (AUTO) 1.6 10^3/uL (1.5-3.5); LYMPHOCYTES % (AUTO) 29.5 %; MEAN CORPUSCULAR HEMOGLOBIN 29.5 pg (27.0-31.0); MEAN CORPUSCULAR HGB CONC 32.8 g/dL (32.0-36.0); MEAN PLATELET VOLUME 9.8 fL (7.9-10.8); MONOCYTES # (AUTO) 0.4 10^3/uL (0.0-1.0); MONOCYTES % (AUTO) 7.1 %; NEUTROPHILS # (AUTO) 3.2 10^3/uL (1.5-6.6); PLT - PLATELET COUNT 363 10^3/uL (130-450); RED BLOOD COUNT 4.78 10^6/uL (4.20-5.40); RED CELL DISTRIBUTION WIDTH 13.2 % (12.0-15.0); WHITE BLOOD COUNT 5.4 x10^3/uL (4.8-10.8)
[2020-08-27 18:13] LABS: ALBUMIN 3.9 g/dL (3.2-5.5); ALBUMIN/GLOBULIN RATIO 1.1 (1.0-2.2); BILIRUBIN,TOTAL 0.7 mg/dL (0.2-1.0); CALCIUM 9.6 mg/dL (8.5-10.3); CREATININE 0.7 mg/dL (0.4-1.0); TOTAL PROTEIN 7.6 g/dL (6.7-8.2)
[2020-08-27 18:30] LABS: THYROID STIMULATING HORMONE 2.88 uIU/mL (0.34-5.60)
[2020-08-27 18:32] LABS: FREE T4 (FREE THYROXINE) 0.77 ng/dL (0.58-1.64)
[2020-08-27 18:33] LABS: FREE T3 3.42 pg/mL (2.5-3.9)
[2020-08-27 18:41] LABS: FOLATE 13.78 ng/mL (5.90 - >24.8)
== END 2020-08-27 23:59 | disposition home or self-care (01) ==
LOC: LAB.WCP 08:00
PROVIDERS: ATTEND Family Medicine
DX: E87.6 Hypokalemia (principal); R53.83 Other fatigue; R94.6 Abnormal results of thyroid function studies; G47.33 Obstructive sleep apnea (adult) (pediatric); E53.8 Deficiency of other specified B group vitamins; E55.9 Vitamin D deficiency, unspecified
CPT/HCPCS: 36415; 80053; 82306; 82607; 82746; 84439; 84443; 84481; 85025

== ENCOUNTER 2021-01-19 07:00 | Outpatient (CLI) | payer MEDICARE, MEDICAID | END 2021-01-19 23:59 | disposition home or self-care (01) | LOC: COV 07:00 | PROVIDERS: ATTEND Family Medicine | DX: Z20.822 Contact with and (suspected) exposure to COVID-19 (principal) ==

== ENCOUNTER 2021-01-26 09:19 | Outpatient (CLI) | payer MEDICARE, MEDICAID ==
[2021-01-26 11:37] LABS: BASOPHILS % (AUTO) 0.7 %; EOSINOPHILS # (AUTO) 0.1 10^3/uL (0.0-0.7); EOSINOPHILS % (AUTO) 2.2 %; HCT - HEMATOCRIT 44.8 % (37.0-47.0); HGB - HEMOGLOBIN 14.8 g/dL (12.0-16.0); LYMPHOCYTES # (AUTO) 1.7 10^3/uL (1.5-3.5); LYMPHOCYTES % (AUTO) 28.7 %; MEAN CORPUSCULAR HEMOGLOBIN 29.5 pg (27.0-31.0); MEAN CORPUSCULAR VOLUME 89.2 fL (81.0-99.0); MEAN PLATELET VOLUME 9.9 fL (7.9-10.8); MONOCYTES # (AUTO) 0.4 10^3/uL (0.0-1.0); MONOCYTES % (AUTO) 5.9 %; NEUTROPHILS # (AUTO) 3.7 10^3/uL (1.5-6.6); NEUTROPHILS % (AUTO) 62.2 %; PLT - PLATELET COUNT 356 10^3/uL (130-450); RED BLOOD COUNT 5.02 10^6/uL (4.20-5.40); RED CELL DISTRIBUTION WIDTH 13.6 % (12.0-15.0); WHITE BLOOD COUNT 5.9 x10^3/uL (4.8-10.8)
[2021-01-26 12:47] LABS: % IRON SATURATION 20 % (20-50); ALBUMIN 3.9 g/dL (3.2-5.5); ALBUMIN/GLOBULIN RATIO 1.1 (1.0-2.2); ALKALINE PHOSPHATASE 59 IU/L (42-121); ALT ALANINE AMINOTRANSFERASE 15 IU/L (10-60); AST ASPARTATE AMINOTRANSFERASE 17 IU/L (10-42); BILIRUBIN,TOTAL 0.8 mg/dL (0.2-1.0); BUN - BLOOD UREA NITROGEN 16 mg/dL (6-20); CALCIUM 9.5 mg/dL (8.5-10.3); CARBON DIOXIDE - CO2 27 mmol/L (21-32); CHLORIDE 103 mmol/L (101-111); CHOLESTEROL 229 mg/dL; CREATININE 0.8 mg/dL (0.4-1.0); GFR - MDRD 73 (>89); GLUCOSE 109 mg/dL (70-100); HDL CHOLESTEROL 38 mg/dL; IRON 80 ug/dL (28-170); LDL CHOLESTEROL,CALCULATED 167 mg/dL; LDL/HDL RATIO 4.4 (<4.4); POTASSIUM 3.4 mmol/L (3.5-5.0); SODIUM 141 mmol/L (135-145); TOTAL IRON BINDING CAPACITY 409 ug/dL (250-450); TOTAL PROTEIN 7.3 g/dL (6.7-8.2); TRANSFERRIN 292 mg/dL (192-382); TRIGLYCERIDES 118 mg/dL; VLDL CHOLESTEROL 24 mg/dL
[2021-01-26 12:48] LABS: THYROID STIMULATING HORMONE 4.52 uIU/mL (0.34-5.60)
[2021-01-26 12:54] LABS: FERRITIN 9.8 ng/mL (11.0-306.8)
[2021-01-26 13:16] LABS: LUTEINIZING HORMONE 30.15 mIU/mL
== END 2021-01-26 23:59 | disposition home or self-care (01) ==
LOC: LAB.WCP 09:19
PROVIDERS: ATTEND Internal Medicine
DX: I10 Essential (primary) hypertension (principal); E53.8 Deficiency of other specified B group vitamins; D64.9 Anemia, unspecified; N95.1 Menopausal and female climacteric states; R94.6 Abnormal results of thyroid function studies
CPT/HCPCS: 36415; 80053; 80061; 82607; 82728; 83002; 83540; 83721; 84443; 84466; 85025

== ENCOUNTER 2021-07-29 10:11 | Outpatient (CLI) | payer MEDICARE, MEDICAID ==
--- NOTE | 2021-07-29 11:58 | XRAY Report ---
PROCEDURE: Chest 2 View X-Ray INDICATIONS: COVID PNEUMONIA TECHNIQUE: 2 view(s) of the chest. COMPARISON: None. FINDINGS: Surgical changes and devices: None. Lungs and pleura: Streaky bilateral pulmonary opacities are noted. Mediastinum: Mediastinal contours are normal. Heart size is normal. Bones and chest wall: No suspicious bony abnormalities. Soft tissues appear unremarkable. IMPRESSION: Streaky bilateral opacities suggestive of pneumonia. Reviewed by: Croi Nguyen MD on 07/29/2021 11:56 AM PDT Approved by: Cori Nguyen MD on 07/29/2021 11:56 AM PDT Station ID: [id number]
== END 2021-07-29 10:12 | disposition home or self-care (01) ==
LOC: DI.N 10:11
PROVIDERS: ATTEND Family Medicine
DX: U07.1 COVID-19 (principal); J12.82 Pneumonia due to coronavirus disease 2019

== ENCOUNTER 2021-09-15 07:38 | Outpatient (CLI) | payer MEDICARE, MEDICAID ==
--- NOTE | 2021-09-15 09:23 | XRAY Report ---
PROCEDURE: Chest 2 View X-Ray INDICATIONS: COVID-19 PNEUMONIA TECHNIQUE: 2 view(s) of the chest. COMPARISON: None. FINDINGS: Surgical changes and devices: None. Lungs and pleura: No pleural effusions or pneumothorax. Subtle increased interstitial reticular rj ings are seen scattered in bilateral lung marshall. Mediastinum: Mediastinal contours are normal. Heart size is bilateral enlarged. Bones and chest wall: No suspicious bony abnormalities. Soft tissues appear unremarkable. IMPRESSION: Finding is concerning for subtle early developing infiltrates scattered in bilateral lung marshall. No pleural effusion or pneumothorax. Reviewed by: Dick Rocha MD on 09/15/2021 9:22 AM [facility] Approved by: Dick Rocha MD on 09/15/2021 9:22 AM [facility] Station ID: [id number]
== END 2021-09-15 07:39 | disposition home or self-care (01) ==
LOC: DI.N 07:38
PROVIDERS: ATTEND Family Medicine
DX: U07.1 COVID-19 (principal); J12.82 Pneumonia due to coronavirus disease 2019; R91.8 Other nonspecific abnormal finding of lung field

== ENCOUNTER 2023-04-25 09:21 | Outpatient (CLI) | payer MEDICARE, MEDICAID ==
[2023-04-25 09:58] LABS: ALBUMIN 3.9 g/dL (3.2-5.5); ALKALINE PHOSPHATASE 57 IU/L (42-121); ALT ALANINE AMINOTRANSFERASE 17 IU/L (10-60); AST ASPARTATE AMINOTRANSFERASE 21 IU/L (10-42); BUN - BLOOD UREA NITROGEN 15 mg/dL (6-20); CALCIUM 9.3 mg/dL (8.5-10.3); CARBON DIOXIDE - CO2 27 mmol/L (21-32); CHLORIDE 104 mmol/L (101-111); CHOL/HDL RATIO 5.9 (<4.4); CHOLESTEROL 240 mg/dL; CREATININE 0.8 mg/dL (0.4-1.0); GFR - MDRD 73 (>89); GLUCOSE 113 mg/dL (70-100); HDL CHOLESTEROL 41 mg/dL; LDL CHOLESTEROL,CALCULATED 174 mg/dL; LDL/HDL RATIO 4.2 (<4.4); POTASSIUM 3.5 mmol/L (3.5-5.0); SODIUM 140 mmol/L (135-145); TOTAL PROTEIN 7.8 g/dL (6.7-8.2); TRIGLYCERIDES 123 mg/dL; VLDL CHOLESTEROL 25 mg/dL
[2023-04-25 11:31] LABS: ESTIMATED AVERAGE GLUCOSE 111 mg/dL (70-100); HEMOGLOBIN A1c% 5.5 % (4.27-6.07)
[2023-04-26 03:10] LABS: HBsAG SCREEN Negative (Negative); HCV AB Non Reactive (Non Reactive); HEPATITIS B SURFACE AB QUAL Non Reactive (.); HIV SCREEN 4TH GENERATION Non Reactive (Non Reactive)
[2023-04-26 11:11] LABS: RPR Non Reactive (Non Reactive)
== END 2023-04-25 09:22 | disposition home or self-care (01) ==
LOC: LAB 09:21
PROVIDERS: ATTEND Nurse Practitioner Family
DX: E78.5 Hyperlipidemia, unspecified (principal); E16.2 Hypoglycemia, unspecified; Z11.3 Encounter for screening for infections with a predominantly sexual mode of transmission
CPT/HCPCS: 36415; 80053; 80061; 83036; 86592; 86704; 86706; 86803; 87340; G0475; 83721; 87389